=== PATIENT | female | born 1995 | race African-American/Black ===

== ENCOUNTER 2017-02-20 01:04 | Emergency (ER) | payer MEDICAID ==
[~2017-02-20] VITALS: Ht 160 cm; Wt 55.0 kg
[2017-02-20 01:11] VITALS: BP 121/70
== END 2017-02-20 02:16 | disposition home or self-care (01) ==
LOC: ER 01:30
DX: B37.3 Candidiasis of vulva and vagina (principal); N89.8 Other specified noninflammatory disorders of vagina
CPT/HCPCS: 81025; 99283

== ENCOUNTER 2017-03-30 03:57 | Emergency (ER) | payer MEDICAID ==
[~2017-03-30] VITALS: Ht 162.6 cm; Wt 45.0 kg
[2017-03-30 07:42] LABS: GLUCOSE URINE NEGATIVE (NEGATIVE); KETONES URINE NEGATIVE (NEGATIVE); LEUKOCYTE ESTERASE URINE TRACE (NEGATIVE); NITRITE URINE NEGATIVE (NEGATIVE); OCCULT BLOOD URINE NEGATIVE (NEGATIVE); PH URINE 6.5 (4.5-8.0); PROTEIN URINE NEGATIVE (NEGATIVE); SPECIFIC GRAVITY URINE 1.028 (1.005-1.030); UROBILINOGEN URINE 0.2 E.U./dL (0.2-1.0)
[2017-03-30 07:43] LABS: CLARITY URINE CLEAR (CLEAR); COLOR URINE YELLOW (YELLOW)
[2017-03-30] MEDS ORDERED: FLUCONAZOLE 100MG TABLET PO ONE (08:30)
[2017-03-30] MEDS ORDERED: FLUCONAZOLE 150MG TABLET PO ONE (08:45)
[2017-03-30 09:04] VITALS: BP 103/65
[2017-04-02 04:12] LABS: CHLAMYDIA TRACHOMATIS NAA Negative (Negative); NEISSERIA GONORRHOEAE NAA Negative (Negative)
== END 2017-03-30 09:03 | disposition home or self-care (01) ==
LOC: ER 06:01
DX: B37.3 Candidiasis of vulva and vagina (principal); F17.210 Nicotine dependence, cigarettes, uncomplicated
CPT/HCPCS: 81001; 81025; 87210; 87491; 87591; 99284

== ENCOUNTER 2018-01-18 14:52 | Emergency (ER) | payer MEDICAID ==
[~2018-01-18] VITALS: Ht 160 cm; Wt 42.0 kg
[2018-01-18] MEDS ORDERED: ACETAMINOPHEN 325MG TABLET PO ONE (18:30)
[2018-01-18] MEDS ORDERED: ONDANSETRON 4MG ODT PO ONE (18:30)
[2018-01-18] MEDS ORDERED: KETOROLAC 60MG/2ML VIAL IM ONE (19:45)
[2018-01-18 19:58] VITALS: BP 110/75
== END 2018-01-18 20:27 | disposition home or self-care (01) ==
LOC: ER 16:11
DX: S06.0X1A Concussion with loss of consciousness of 30 minutes or less, initial encounter (principal); W19.XXXA Unspecified fall, initial encounter; F17.200 Nicotine dependence, unspecified, uncomplicated
CPT/HCPCS: 70450; 81025; 96372; 99284; J1885; Q0162

== ENCOUNTER 2018-08-02 15:44 | Emergency (ER) | payer OTHER, MEDICAID ==
[~2018-08-02] VITALS: Ht 160 cm; Wt 45.0 kg
[2018-08-02] MEDS ORDERED: ACETAMINOPHEN 325MG TABLET PO ONE (20:45)
[2018-08-02 20:54] VITALS: BP 115/84
== END 2018-08-02 20:56 | disposition home or self-care (01) ==
LOC: ER 15:44
DX: O26.891 Other specified pregnancy related conditions, first trimester (principal); S63.681A Other sprain of right thumb, initial encounter; Z3A.09 9 weeks gestation of pregnancy; W22.01XA Walked into wall, initial encounter; Y93.51 Activity, roller skating (inline) and skateboarding; Y92.018 Other place in single-family (private) house as the place of occurrence of the external cause
CPT/HCPCS: 29130; 81025; 99283; Z7610

== ENCOUNTER 2018-09-27 17:29 | Emergency (ER) | payer MEDICAID, OTHER ==
[~2018-09-27] VITALS: Ht 160 cm; Wt 45.0 kg
[2018-09-28 00:52] LABS: CLARITY URINE CLEAR (CLEAR); COLOR URINE YELLOW (YELLOW); KETONES URINE NEGATIVE (NEGATIVE); LEUKOCYTE ESTERASE URINE NEGATIVE (NEGATIVE); NITRITE URINE NEGATIVE (NEGATIVE); OCCULT BLOOD URINE 2+ (NEGATIVE); PH URINE 5.5 (4.5-8.0); PROTEIN URINE NEGATIVE (NEGATIVE); SPECIFIC GRAVITY URINE 1.034 (1.005-1.030); UROBILINOGEN URINE 0.2 E.U./dL (0.2-1.0)
[2018-09-28 01:40] LABS: BASOPHILS % 0.3 % (0.0-2.0); EOSINOPHILS % 2.1 % (0.0-5.0); HEMATOCRIT. 31.7 % (36.0-48.0); HEMOGLOBIN. 11.2 g/dL (12.0-16.0); MEAN CORPUSCULAR HEMOGLOBIN 28.2 pg (28.0-32.0); MEAN CORPUSCULAR VOLUME 79.8 fL (81.0-99.0); MEAN PLATELET VOLUME 8.5 fl (7.4-10.4); MONOCYTES % 7.2 % (2.0-8.0); NEUTROPHILS % 55.4 % (40.0-76.0); PLATELET 206 x1000/uL (130-400); RED BLOOD CELL COUNT 3.97 mill/uL (4.2-5.4); RED CELL DISTRIBUTION WIDTH 15.5 % (11.6-14.6)
[2018-09-28 01:47] LABS: CHLORIDE 106 mEq/L (98-107)
[2018-09-28 02:13] LABS: B-HCG QUANTITATIVE 48668 mIU/mL (<3)
[2018-09-28 03:02] VITALS: BP 110/55
== END 2018-09-28 03:42 | disposition home or self-care (01) ==
LOC: ER 17:29
DX: O20.0 Threatened abortion (principal); O23.42 Unspecified infection of urinary tract in pregnancy, second trimester; Z3A.14 14 weeks gestation of pregnancy
CPT/HCPCS: 36415; 76801; 84702; 86850; 86900; 99284

== ENCOUNTER 2019-01-07 02:05 | Observation (INO) | payer MEDICAID ==
[~2019-01-07] VITALS: Ht 160 cm; Wt 54.4 kg
[2019-01-07 03:04] LABS: CLARITY URINE CLEAR (CLEAR); COLOR URINE YELLOW (YELLOW); KETONES URINE TRACE (NEGATIVE); LEUKOCYTE ESTERASE URINE NEGATIVE (NEGATIVE); NITRITE URINE NEGATIVE (NEGATIVE); OCCULT BLOOD URINE NEGATIVE (NEGATIVE); PROTEIN URINE NEGATIVE (NEGATIVE); SPECIFIC GRAVITY URINE 1.032 (1.005-1.030)
[2019-01-07] MEDS ORDERED: PNV1TABL50 PO (03:04)
[2019-01-07] MEDS ORDERED: ACETAMINOPHEN 500MG TABLET PO NR (03:30)
== END 2019-01-07 06:45 | disposition home or self-care (01) ==
LOC: 8 EST LDRP 02:05
PROVIDERS: ADMIT Obstetrics & Gynecology; ATTEND Obstetrics & Gynecology
DX: O26.893 Other specified pregnancy related conditions, third trimester (principal); R10.30 Lower abdominal pain, unspecified; R10.2 Pelvic and perineal pain; Z3A.28 28 weeks gestation of pregnancy
CPT/HCPCS: 76805; 76818; 81003; 99281; G0378